=== PATIENT | female | born 1970 | race Caucasian/White ===

== ENCOUNTER 2018-05-19 19:11 | Emergency (ER) | payer SELFPAY ==
[2018-05-19] MEDS ORDERED: Ketorolac Tromethamine 30 MG/ML VIAL ONE (20:55)
[2018-05-19 21:26] LABS: Bilirubin Negative (Negative); Blood, Urine Small (Negative); Clarity CLEAR (Clear); Glucose, Urine (Dipstick) Negative (Negative); Leukocyte Negative (Negative); Nitrite Negative (Negative); Protein, Urine (Dipstick) Negative (Neg-Trace); Specific Gravity, Urine 1.005 (1.002-1.036); Urobilinogen 0.2 mg/dL (0.2-1.0)
[2018-05-19 21:28] LABS: Bacteria/HPF None Seen HPF (None Seen); Hyaline Casts/LPF 7-10 HYALINE CAST LPF (0-3 Hyaline); RBC/HPF 0-3 HPF (0-3); WBC/HPF 0-3 HPF (0-3)
[2018-05-19 21:30] LABS: Pathc Cast-AUWi Flag 2.76 (0-2.49); Pregnancy Test - Urine (BHCG) Negative (Negative); Pregu Control Background? CLEAR/WHITE (CLR/WHITE); Pregu Control Bar Appear? YES (CONTROL BAR); Specific Gravity 1.005 (1.002-1.036)
[2018-05-19] MEDS ORDERED: Diazepam 5 MG TAB ONE ×2 (21:40→21:52)
--- NOTE | 2018-05-19 22:34 | RAD ---
LUMBAR SPINE SERIES THREE VIEWS: INDICATIONS: Low back pain. FINDINGS: No compression fracture or subluxation. Disk space heights are preserved. There is facet sclerosis inferiorly. IMPRESSION: No acute osseous abnormality of the lumbar spine. POS: TERRY
== END 2018-05-19 22:48 | disposition home or self-care (01) ==
LOC: ERS 19:11
DX: M54.5 Low back pain (principal); M54.6 Pain in thoracic spine; G89.29 Other chronic pain; F41.9 Anxiety disorder, unspecified; F31.9 Bipolar disorder, unspecified; F17.210 Nicotine dependence, cigarettes, uncomplicated
CPT/HCPCS: 72100; 81003; 81015; 81025; 96372; J1885